=== PATIENT | male | born 1985 | race Caucasian/White ===

== ENCOUNTER 2016-12-20 13:48 | Emergency (ER) | payer SELFPAY ==
--- NOTE | 2016-12-20 15:19 | ED ---
Skin Complaint - HPI Summary HPI Summary: 31 yr old male with tick bite, and rash. HPI: two weeks ago the patient was bitten by a tick left lateral upper back lateral to the left scapula. The patient presents here with a rash that has developed. He denies feeling ill otherwise. He has not had fever or chills. He has no other complaints. - History of Current Complaint Time Seen by Provider: 12/20/16 15:06 Stated Complaint: TICK BITE - Allergy/Home Medications Allergies/Adverse Reactions: Allergies Allergy/AdvReac Type Severity Reaction Status Date / Time No Known Allergies Allergy Verified 12/20/16 15:13 PMH/Surg Hx/FS Hx/Imm Hx Previously Healthy: Yes Endocrine/Hematology History: Denies: Hx Diabetes, Hx Thyroid Disease Cardiovascular History: Denies: Hx Hypertension Respiratory History: Denies: Hx Asthma, Hx Chronic Obstructive Pulmonary Disease (COPD) GI History: Denies: Hx Ulcer Musculoskeletal History: Reports: Other Musculoskeletal History - 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 - Surgical History Surgery Procedure, Year, and Place: YOUNG CHILD TONSILLECTOMY [facility]. RIGHT ELBOW ULNAR NERVE TRANSPORTITION JUN 2015 Hx Anesthesia Reactions: No Infectious Disease History: Denies: Hx Clostridium Difficile, Hx Hepatitis, Hx Human Immunodeficiency Virus (HIV), Hx of Known/Suspected MRSA, Hx Shingles, Hx Tuberculosis, Hx Known/ Suspected VRE, Hx Known/Suspected VRSA, History Other Infectious Disease - Family History Known Family History: Positive: Cardiac Disease, Hypertension Negative: Diabetes - Social History Alcohol Use: None Alcohol Amount: FEW DRINKS/YEAR Substance Use Type: Reports: None Smoking Status (MU): Never Smoked Tobacco Have You Smoked in the Last Year: No Review of Systems Constitutional: Negative Eyes: Negative ENT: Negative Positive: Rash - left upper back where tick bit him two weeks ago. All Other Systems Reviewed And Are Negative: Yes Physical Exam Triage Information Reviewed: Yes Vital Signs Reviewed: Yes Appearance: Positive: Well-Appearing, No Pain Distress Skin: Positive: Warm, Erythema @ - left upper back consistent with localized erythema migraines rash about 6 inches in diameter. Head/Face: Positive: Normal Head/Face Inspection Eyes: Positive: Normal, EOMI Respiratory/Lung Sounds: Positive: Clear to Auscultation, Breath Sounds Present Cardiovascular: Positive: Normal, RRR. Negative: Murmur Musculoskeletal: Positive: Normal, Strength/ROM Intact Neurological: Positive: Normal, Sensory/Motor Intact, Alert, Oriented to Person Place, Time, CN Intact II-III Psychiatric: Positive: Normal Course/Dx - Course Course Of Treatment: Male with localized erythema migrans after tick bit. Rx doxy. FU PMD - Diagnoses Provider Diagnoses: Erythema migrans (Lyme disease) Discharge - Discharge Plan Condition: Good Disposition: HOME Prescriptions: Doxycycline (Monohydrate) [Doxycycline Monohydrate] 100 mg PO BID #28 cap Patient Education Materials: Lyme Disease (ED), Tick Bite (ED) Referrals: Jeff Phan MD [Primary Care Provider] - Additional Instructions: be sure to follow up with your primary care doctor in the next week. Take all the antibiotics prescribed for the full 14 days.
[2016-12-20 15:20] VITALS: BP 130/92
== END 2016-12-20 15:38 | disposition home or self-care (01) ==
LOC: UCCORT 13:48
DX: A69.20 Lyme disease, unspecified (principal)
CPT/HCPCS: 99212; G0463

== ENCOUNTER 2018-09-12 15:49 | Emergency (ER) | payer OTHER ==
[2018-09-12 16:14] VITALS: BP 128/63
[2018-09-12] MEDS ORDERED: Fluorescein Sodium TOPICAL* 1 MG TEST STRIP OPHTHALMIC ONE (16:24)
[2018-09-12] MEDS ORDERED: Tetracaine 0.5% OPTH.SOL 4 ML* 1 DROP BTL RIGHT EYE ONE (16:24)
--- NOTE | 2018-09-12 16:48 | UC ---
Eye Complaint HPI - HPI Summary HPI Summary: Woke up this morning with right eye redness, irritation and clear drainage. No trauma or injury that he can recall. Was not outside yesterday. Has pain with blinking. No pain with extraocular movements. No nausea, fever or headache. Vision is slightly blurry due to drainage but otherwise seems unaffected. Does not wear contact lenses. No recent URI sx. - History of Current Complaint Chief Complaint: UCEye Stated Complaint: RT EYE COMPLAINT Time Seen by Provider: 09/12/18 16:04 Hx Obtained From: Patient Onset/Duration: Sudden Onset, Lasting Hours, Still Present Timing: Constant Severity Initially: Moderate Severity Currently: Moderate Pain Intensity: 8 Pain Scale Used: 0-10 Numeric Character: Foreign Body Sensation Aggravating Factor(s): Blinking Alleviating Factor(s): Nothing Associated Signs And Symptoms: Positive: Photophobia, Drainage (Clear) - Allergies/Home Medications Allergies/Adverse Reactions: Allergies Allergy/AdvReac Type Severity Reaction Status Date / Time No Known Allergies Allergy Verified 09/12/18 16:05 PMH/Surg Hx/FS Hx/Imm Hx Previously Healthy: Yes - Surgical History Surgical History: Yes Surgery Procedure, Year, and Place: YOUNG CHILD TONSILLECTOMY [facility]. RIGHT ELBOW ULNAR NERVE TRANSPORTITION JUN 2015 - Family History Known Family History: Positive: Cardiac Disease, Hypertension Negative: Diabetes - Social History Alcohol Use: Occasionally Alcohol Amount: FEW DRINKS/YEAR Substance Use Type: None Smoking Status (MU): Never Smoked Tobacco Have You Smoked in the Last Year: No - Immunization History Most Recent Tetanus Shot: 2014 Review of Systems All Other Systems Reviewed And Are Negative: Yes Constitutional: Positive: Negative Skin: Positive: Negative Eyes: Positive: Drainage, Eye Redness, Photophobia ENT: Positive: Negative Respiratory: Positive: Negative Cardiovascular: Positive: Negative Gastrointestinal: Positive: Negative Physical Exam Triage Information Reviewed: Yes Appearance: Well-Appearing, Well-Nourished, Pain Distress - MILD Vital Signs: Initial Vital Signs Temp 97.9 F 09/12/18 16:06 Pulse 60 09/12/18 16:06 Resp 16 09/12/18 16:06 BP 128/63 09/12/18 16:06 Pulse Ox 100 09/12/18 16:06 Vital Signs Reviewed: Yes Eyes: Positive: Conjunctiva Inflamed - RIGHT EYE, Discharge - CLEAR DRAINAGE RIGHT EYE, Other: - ABRASION ACROSS LOWER BULBAR CONJUNCTIVA EXTENDING TO LOWER PART OF CORNEA. ENT: Positive: Hearing grossly normal Neck: Positive: Supple Respiratory: Positive: No respiratory distress, No accessory muscle use Cardiovascular: Positive: Pulses Normal Abdomen Description: Positive: Soft Musculoskeletal: Positive: No Edema Neurological: Positive: Alert Psychological: Positive: Age Appropriate Behavior Skin: Negative: Rashes Eye Complaint Course/Dx - Differential Dx/Diagnosis Provider Diagnosis: Conjunctival abrasion Discharge - Sign-Out/Discharge Documenting (check all that apply): Patient Departure All imaging exams completed and their final reports reviewed: No Studies - Discharge Plan Condition: Stable Disposition: HOME Prescriptions: Erythromycin OPHTH.OINT* [Ilotycin OPHTH.OINT*] 1 applic RIGHT EYE QID #1 tube Ketorolac 0.5% OPHTH (NF) 1 drop RIGHT EYE QID PRN #1 btl PRN Reason: Pain Patient Education Materials: Corneal Abrasion (ED) Referrals: Jeff Phan MD [Primary Care Provider] - Additional Instructions: CONJUNCTIVAL ABRASION Conjunctival abrasions occur from blunt injuries and mild chemical or thermal radford and present as an irregularity of the epithelial surface of the conjunctiva, best seen using fluorescein stain and a cobalt blue light. Regions of denuded epithelium will appear green. Corneal abrasions are also frequently present. Isolated conjunctival abrasions are treated with antibiotic ointment applied four times daily for one week. Referral to an senior talent management consultant for a complete eye examination within one to three days of injury is a reasonable precaution in these patients if all symptoms have not resolved and in contact wearers. These injuries typically heal within two to three days. Patients with an isolated conjunctival injury typically recover fully without any vision loss Don't drive or operate machinery until you have the use of both your eyes. The abrasion usually is healed in one or two days. A follow-up examination to confirm healing is recommended. Call the doctor or return at once if you develop severe pain, decreasing vision, eye swelling, or purulent drainage. - Billing Disposition and Condition Condition: STABLE Disposition: Home
== END 2018-09-12 16:45 | disposition home or self-care (01) ==
LOC: UCCORT 15:49
DX: S05.01XA Injury of conjunctiva and corneal abrasion without foreign body, right eye, initial encounter (principal); X58.XXXA Exposure to other specified factors, initial encounter; Y92.003 Bedroom of unspecified non-institutional (private) residence as the place of occurrence of the external cause
CPT/HCPCS: 99212; A9270-GY; G0463

== ENCOUNTER 2019-02-09 11:19 | Emergency (ER) | payer OTHER ==
[2019-02-09 11:28] VITALS: BP 135/75
--- NOTE | 2019-02-09 11:32 | UC ---
Throat Pain/Nasal Pedro HPI - HPI Summary HPI Summary: 33-year-old male presents with 1 day history of sore throat. Associated with an occasional dry nonproductive cough. States his significant other's daughter was diagnosed with strep last week. Denies fever, chills, nasal congestion, runny nose, dysphagia, chest pain, shortness of breath, abdominal pain, nausea, or vomiting. - History of Current Complaint Chief Complaint: UCRespiratory Stated Complaint: SORE THROAT Time Seen by Provider: 02/09/19 11:22 Hx Obtained From: Patient Pain Intensity: 7 - Allergies/Home Medications Allergies/Adverse Reactions: Allergies Allergy/AdvReac Type Severity Reaction Status Date / Time No Known Allergies Allergy Verified 02/09/19 11:29 Home Medications: Home Medications NK [No Home Medications Reported] 02/09/19 [History Confirmed 02/09/19] PMH/Surg Hx/FS Hx/Imm Hx Previously Healthy: Yes - Denies significant PMH - Surgical History Surgical History: Yes Surgery Procedure, Year, and Place: YOUNG CHILD TONSILLECTOMY [facility]. RIGHT ELBOW ULNAR NERVE TRANSPORTITION JUN 2015 - Family History Known Family History: Positive: Cardiac Disease, Hypertension Negative: Diabetes - Social History Occupation: Disabled Lives: With Family Alcohol Use: Rare Alcohol Amount: FEW DRINKS/YEAR Substance Use Type: None Smoking Status (MU): Never Smoked Tobacco Have You Smoked in the Last Year: No - Immunization History Most Recent Tetanus Shot: 2014 Review of Systems All Other Systems Reviewed And Are Negative: Yes Constitutional: Negative: Fever, Chills Skin: Negative: Rash Eyes: Negative: Drainage, Eye Redness ENT: Positive: Sore Throat. Negative: Ear Ache, Nasal Discharge, Sinus Congestion, Sinus Pain/Tenderness Respiratory: Positive: Cough. Negative: Shortness Of Breath Cardiovascular: Negative: Palpitations, Chest Pain Gastrointestinal: Negative: Abdominal Pain, Vomiting, Diarrhea, Nausea Genitourinary: Positive: Negative Musculoskeletal: Positive: Negative Neurological: Positive: Negative Is Patient Immunocompromised?: No Physical Exam - Summary Physical Exam Summary: GENERAL APPEARANCE: Well developed, well nourished, alert and cooperative, and appears to be in no acute distress. EYES: Conjunctiva clear. EARS: External auditory canals and tympanic membranes clear, hearing grossly intact. NOSE: No nasal discharge. THROAT: Pharyngeal erythema. No tonsilar inflammation, swelling, exudate, or lesions. Uvula midline. Oral cavity normal. Teeth and gingiva in good general condition. NECK: Neck supple, non-tender without lymphadenopathy. CARDIAC: Normal S1 and S2. No S3, S4 or murmurs. Rhythm is regular. There is no peripheral edema, cyanosis or pallor. Extremities are warm and well perfused. Capillary refill is less than 2 seconds. Peripheral pulses intact. LUNGS: Clear to auscultation without rales, rhonchi, wheezing or diminished breath sounds. ABDOMEN: Positive bowel sounds. Soft, nondistended, nontender. No guarding or rebound. No masses or hepatosplenomegally. MUSKULOSKELETAL: ROM intact to all extremities. No joint erythema or tenderness. Normal muscular development. Normal gait. SKIN: Skin normal color, texture and turgor with no lesions or eruptions. Triage Information Reviewed: Yes Vital Signs: Initial Vital Signs Temp 97.3 F 02/09/19 11:25 Pulse 61 02/09/19 11:25 Resp 18 02/09/19 11:25 BP 135/75 02/09/19 11:25 Pulse Ox 99 02/09/19 11:25 Vital Signs Reviewed: Yes Throat Pain/Nasal Course/Dx - Course Course Of Treatment: 33-year-old male presents with 1 day history of sore throat. Associated with an occasional dry nonproductive cough. States his significant other's daughter was diagnosed with strep last week. Denies fever, chills, nasal congestion, runny nose, dysphagia, chest pain, shortness of breath, abdominal pain, nausea, or vomiting. Afebrile. Mildly hypertensive otherwise vital signs stable. Exam revealed pharyngeal erythema without tonsillar swelling, exudate, or cervical lymphadenopathy. Rapid strep test was negative. Recommending symptomatic treatment for a viral pharyngitis versus postnasal drip from seasonal allergies. He is to follow-up with primary care provider in 3-5 days if symptoms do not improve. Anticipatory guidance and warning symptoms were reviewed with patient. Verbalized understanding and agrees with plan of care. - Differential Dx/Diagnosis Differential Diagnosis/HQI/PQRI: Pharyngitis, Sinusitis, Tonsillitis, URI Provider Diagnosis: Viral pharyngitis, Elevated blood pressure reading Discharge - Sign-Out/Discharge Documenting (check all that apply): Patient Departure All imaging exams completed and their final reports reviewed: No Studies - Discharge Plan Condition: Stable Disposition: HOME Patient Education Materials: Pharyngitis (ED) Referrals: Jeff Phan MD [Primary Care Provider] - 3 Days Additional Instructions: Your rapid strep test in the clinic today was negative. Your symptoms are likely from a viral infection. Viral infections do not respond to antibiotics and are limited to the treatment of symptoms. Viral infections typically run their course in 7-10 days. Drink plenty of fluids to avoid dehydration especially if you are running any fever. Use salt water gargles several times a day. Take over the counter acetaminophen (Tylenol) or ibuprofen (Advil, Motrin) according to directions as needed for pain or fever. You may also use Chloraseptic spray or Cepacol lonzenges according to directions which contain a numbing medication and can provide some temporary relief from your sore throat. Return here or follow up with your primary care provider in 3-5 days if symptoms persist. Your blood pressure was slightly elevated in the clinic today. It is recommended that you have this rechecked by your primary care provider. Seek immediate medical attention in the emergency room if you have fever greater than 100.5 F despite taking acetaminophen or ibuprofen, are unable to swallow or develop drooling, are unable to open your mouth fully, are unable to eat or drink, have pain that is not relieved with over the counter pain medication, or have any difficulty breathing. - Billing Disposition and Condition Condition: STABLE Disposition: Home
== END 2019-02-09 11:56 | disposition home or self-care (01) ==
LOC: UCEAST 11:19
DX: J02.9 Acute pharyngitis, unspecified (principal); R03.0 Elevated blood-pressure reading, without diagnosis of hypertension
CPT/HCPCS: 87651; 99211; G0463

== ENCOUNTER 2022-09-17 14:52 | Observation (INO) ==
[2022-09-17] MEDS ORDERED: Ondansetron 4 mg VIAL 2 MG/ML 2 ml VIAL IV ONE (14:54)
[2022-09-17 15:28] LABS: Hematocrit 48 % (42-52); Hemoglobin 16.4 g/dL (14.0-18.0); Mean Corpuscular HGB Conc 34 g/dL (31-36); Mean Corpuscular Hemoglobin 32 pg (27-31); Mean Corpuscular Volume 94 fL (80-94); Mean Platelet Volume 7.3 fL (7.4-10.4); Platelet Count 319 10^3/uL (150-450); Red Blood Count 5.09 10^6 /uL (4.18-5.48); Red Cell Distribution Width 13 % (10-15); White Blood Count 22.3 10^3/uL (3.5-10.8)
[2022-09-17 15:35] LABS: INR 0.96 (0.88-1.18)
[2022-09-17 16:00] LABS: ALT 27 U/L (7-52); Albumin 4.6 g/dL (3.2-5.2); Albumin/Globulin Ratio 1.8 (1-3); Alcohol, S < 13 mg/dL (<13); Alkaline Phosphatase 50 U/L (35-149); Blood Urea Nitrogen 17 mg/dL (6-24); CO2 Carbon Dioxide 20 mmol/L (22-32); Calcium 8.9 mg/dL (8.6-10.3); Chloride 105 mmol/L (101-111); Globulin 2.6 g/dL (2-4); Glucose 110 mg/dL (70-100); Magnesium 1.8 mg/dL (1.9-2.7); Sodium 134 mmol/L (135-145); Total Protein 7.2 g/dL (6.4-8.9); eGFR CKD-EPI 90.5 (>60)
[2022-09-17] MEDS ORDERED: Magnesium Sulfate IV 1GM/100ML 1 GM/100 ML BAG IV ONE (16:02)
[2022-09-17] MEDS ORDERED: cefTRIAXone 1 gm/50 mL D5W 1 GM/50 ML BAG IV ONE (16:08)
[2022-09-17] MEDS ORDERED: Azithromycin 500 mg/250 ml NS 500 MG/250 ML BAG IVPB ONE (16:08)
[2022-09-17 16:09] LABS: AST 25 U/L (13-39); Anion Gap 9 mmol/L (2-11); Potassium 4.6 mmol/L (3.5-5.0)
[2022-09-17] MEDS ORDERED: LACTATED RINGERS SEPSIS IV ONE (16:09)
[2022-09-17 16:12] LABS: ABS Basophils 0.2 10^3/ul (0-0.2); ABS Lymphocytes 0.4 10^3/ul (1.0-4.8); ABS Monocytes 0.8 10^3/ul (0-0.8); ABS Neutrophils 20.8 10^3/ul (1.5-7.7); Eosinophil % 0.1 %; Lymphocyte % 1.9 %; Nucleated Red Blood Cells % 0.1
[2022-09-17] MEDS ORDERED: Piperacillin/Tazobac ADVAN 3.375 GM in NS 0.9% 100 ml BAG 100 ML IV ONE (16:27)
[2022-09-17] MEDS ORDERED: Vancomycin 1,500 MG in NS 0.9% 250 ml 250 ML IVPB ONE (17:00)
[2022-09-17] MEDS ORDERED: Ondansetron 4 mg VIAL 2 MG/ML 2 ml VIAL IV PRN (17:35)
[2022-09-17] MEDS ORDERED: Enoxaparin 40 MG/0.4 ML SYR SUBCUT SCH (18:00)
[2022-09-17 19:32] LABS: Urine Benzodiazepine Screen None Detected (None Detect); Urine Cannabinoids Screen Presumptive Positive (None Detect); Urine Opiates Screen None Detected (None Detect)
[2022-09-17 21:34] LABS: Urine Buprenorphine Screen None Detected (None Detect); Urine Fentanyl Screen None Detected (None Detect); Urine Hydrocodone Screen None Detected (None Detect)
[2022-09-17 23:02] LABS: Urine Appearance Clear; Urine Color Yellow
[2022-09-17 23:03] LABS: Urine Bilirubin Negative (Negative); Urine Blood Negative (Negative); Urine Glucose Negative (Negative); Urine Ketones Negative (Negative); Urine Nitrite Negative (Negative); Urine Protein Negative (Negative); Urine Urobilinogen 0.2 (Negative) (Negative); Urine pH 6.5 (5.0-9.0)
[2022-09-18 05:25] LABS: ABS Neutrophils 8.2 10^3/ul (1.5-7.7); Hematocrit 41 % (42-52); Hemoglobin 14.4 g/dL (14.0-18.0); Mean Corpuscular HGB Conc 35 g/dL (31-36); Mean Corpuscular Hemoglobin 33 pg (27-31); Mean Corpuscular Volume 95 fL (80-94); Mean Platelet Volume 7.5 fL (7.4-10.4); Platelet Count 258 10^3/uL (150-450); Red Blood Count 4.35 10^6 /uL (4.18-5.48); Red Cell Distribution Width 13 % (10-15); White Blood Count 9.9 10^3/uL (3.5-10.8)
[2022-09-18 05:26] LABS: ABS Eosinophils 0.1 10^3/ul (0-0.6); ABS Monocytes 0.6 10^3/ul (0-0.8); Eosinophil % 1.2 %; Lymphocyte % 9.9 %; Nucleated Red Blood Cells % 0.1
[2022-09-18 06:05] LABS: Albumin 3.9 g/dL (3.2-5.2); CO2 Carbon Dioxide 23 mmol/L (22-32); Calcium 8.4 mg/dL (8.6-10.3); Chloride 108 mmol/L (101-111); Sodium 138 mmol/L (135-145)
[2022-09-18 06:08] LABS: Anion Gap 7 mmol/L (2-11)
[2022-09-18 06:11] LABS: ALT 22 U/L (7-52); Albumin/Globulin Ratio 1.8 (1-3); Alkaline Phosphatase 42 U/L (35-149); Blood Urea Nitrogen 13 mg/dL (6-24); Globulin 2.2 g/dL (2-4); Glucose 85 mg/dL (70-100); Total Protein 6.1 g/dL (6.4-8.9); eGFR CKD-EPI 100.6 (>60)
[2022-09-18 07:33] LABS: Potassium Redraw 3.8 mmol/L (3.5-5.0)
[2022-09-18] MEDS ORDERED: Sulfur Hexaflouride MICROSPHR 25 MG VIAL ONE (09:44)
[2022-09-18 14:47] LABS: Phosphorus 3.1 mg/dL (2.5-5.0)
[2022-09-18 16:53] VITALS: BP 140/85
[2022-09-18] MEDS ORDERED: Amoxicillin/Clavul 875/125 TAB (Augmentin 875 tab) PO SCH (21:00)
[2022-09-21 21:40] LABS: Lacosamide 9.8 mcg/mL (1.0 - 10.0)
== END 2022-09-18 20:09 | disposition home or self-care (01) ==
LOC: EDHOLD 14:52 → ED 14:52 → SUATTDRO 17:35 → EDHOLD 09-18 04:11 → UNDODISOB 09-18 16:52 → EDHOLD 09-18 20:09
PROVIDERS: ADMIT Internal Medicine; ATTEND Internal Medicine